=== PATIENT | female | born 1965 | race Caucasian/White ===

== ENCOUNTER → 2023-11-10 07:49 | Outpatient (REF) | payer BC, SELFPAY | LOC: WDC 07:49 | PROVIDERS: ATTENDING PHYSICIAN Obstetrics & Gynecology; FAMILY PHYSICIAN Nurse Practitioner Family | DX: Z12.31 Encounter for screening mammogram for malignant neoplasm of breast (principal) | CPT/HCPCS: 77063; 77067 ==

== ENCOUNTER → 2023-11-14 10:12 | Outpatient (REF) | payer BC, SELFPAY | LOC: HWRAD 10:12 | PROVIDERS: ATTENDING PHYSICIAN Nurse Practitioner Family | DX: D26.9 Other benign neoplasm of uterus, unspecified (principal) | CPT/HCPCS: 76830; 76856 ==

== ENCOUNTER → 2024-05-27 09:33 | Outpatient (REF) | payer BC, SELFPAY | LOC: HWRAD 09:33 | PROVIDERS: ATTENDING PHYSICIAN Nurse Practitioner Family | DX: Z13.820 Encounter for screening for osteoporosis (principal) | CPT/HCPCS: 77080 ==

== ENCOUNTER → 2024-06-04 09:40 | Outpatient (REF) | payer BC, SELFPAY | LOC: HWRAD 09:40 | PROVIDERS: ATTENDING PHYSICIAN Obstetrics & Gynecology; FAMILY PHYSICIAN Family Medicine | DX: N83.209 Unspecified ovarian cyst, unspecified side (principal) | CPT/HCPCS: 76830; 76856 ==

== ENCOUNTER 2024-11-09 09:52 | Outpatient (RCR) | payer BC, SELFPAY ==
[2024-10-26 10:13] VITALS: BP 131/85
[2024-10-26] MEDS: VENOFER 110 MG IV (10:37)
[2024-10-26 11:47] VITALS: BP 132/86
[2024-10-29] MEDS: VENOFER 110 MG IV (10:25)
[2024-10-29 10:34] VITALS: BP 124/73
[2024-10-29 12:00] VITALS: BP 141/84
[2024-11-04 10:00] VITALS: BP 142/86
[2024-11-04] MEDS: VENOFER 110 MG IV (10:32)
[2024-11-04 12:00] VITALS: BP 129/77
[2024-11-09 10:00] VITALS: BP 136/76
[2024-11-09] MEDS: VENOFER 110 MG IV (10:15)
[2024-11-09 11:32] VITALS: BP 121/67
== END 2024-11-11 23:59 | disposition home or self-care (01) ==
LOC: OID 09:52
PROVIDERS: ATTENDING PHYSICIAN Internal Medicine Hematology & Oncology; FAMILY PHYSICIAN Family Medicine
DX: D50.9 Iron deficiency anemia, unspecified (principal); Z98.0 Intestinal bypass and anastomosis status
CPT/HCPCS: 96365; J1756

== ENCOUNTER 2024-11-18 09:01 | Outpatient (RCR) | payer BC, SELFPAY ==
[2024-11-18 09:25] VITALS: BP 134/74
[2024-11-18] MEDS: VENOFER 110 MG IV (09:45)
[2024-11-18 11:20] VITALS: BP 126/76
== END 2024-11-19 09:37 | disposition home or self-care (01) ==
LOC: OID 09:01
PROVIDERS: ATTENDING PHYSICIAN Internal Medicine Hematology & Oncology; FAMILY PHYSICIAN Family Medicine
DX: D50.9 Iron deficiency anemia, unspecified (principal); Z98.0 Intestinal bypass and anastomosis status
CPT/HCPCS: 96365; J1756

== ENCOUNTER → 2025-03-18 14:19 | Outpatient (REF) | payer BC, SELFPAY | LOC: PAVMRI 14:19 | PROVIDERS: ATTENDING PHYSICIAN Orthopaedic Surgery; FAMILY PHYSICIAN Family Medicine | DX: M25.561 Pain in right knee (principal) | CPT/HCPCS: 73721 ==